=== PATIENT | female | born 1930 | race Caucasian/White ===

== ENCOUNTER 2017-09-22 19:02 | Emergency (ER) | payer OTHER ==
[~2017-09-22] VITALS: Ht 165.1 cm; Wt 78.5 kg
[~2017-09-22 19:02] MED LIST: AMIT10TA6 PO; ASPI-435 PO; DIGO0.1267 PO; LEVO75TA PO; LPR25 PO; MAGN400T5 PO; MULT-845 PO; PREG1CAP28 PO; SIMV20TA2 PO; TEMA30CA4 PO; WARF6TAB PO
[2017-09-22 19:12] VITALS: TEMP 36.3; Ht 165.1 cm; Wt 78.5 kg
[2017-09-22 19:38] VITALS: O2SAT 100
[2017-09-22 19:45] LABS: BASO ABS # 0.07 K/uL (0-0.2); EOS % 2.4 %; EOS ABS # 0.17 K/uL (0-0.5); HEMATOCRIT 38.9 % (37-47); IG# 0.02 K/uL (0.00-0.02); LYMPH % 30.6 %; LYMPH ABS # 2.19 K/uL (1.2-3.4); MEAN CELL VOLUME 90.9 fL (80-100); MEAN CORPUSCULAR HEMOGLOBIN 30.4 pg (25-34); MEAN CORPUSCULAR HGB CONC 33.4 g/dl (32-36); MEAN PLATELET VOLUME 10.3 fL (7.4-10.4); MONO % 13.3 %; MONO ABS # 0.95 K/uL (0.11-0.59); NEUT % 52.4 %; NEUT ABS # 3.75 K/uL (1.4-6.5); PLATELET COUNT 330 K/uL (130-400); RED CELL DISTRIBUTION WIDTH CV 13.8 % (11.5-14.5); RED CELL DISTRIBUTION WIDTH SD 45.4 fL (36.4-46.3); WHITE BLOOD COUNT 7.15 K/uL (4.8-10.8)
--- NOTE | 2017-09-22 19:55 | DIAGNOSTIC IMAGING REPORT ---
CHEST ONE VIEW PORTABLE CLINICAL HISTORY: Atypical chest pain COMPARISON STUDY: 09/02/2014 FINDINGS: The cardiac and mediastinal contours remain stable. There are postsurgical changes of a midline sternotomy and aortic valve replacement. There is a left subclavian dual-chamber central venous pacemaker present. There is no overt failure. There is no focal pulmonary consolidation. There are no pleural effusions.[ IMPRESSION: No active disease in the chest. Electronically signed by: Jason Le M.D. 09/22/2017 7:54 PM Dictated Date/Time: 09/22/2017 7:53 PM
--- NOTE | 2017-09-22 19:56 | DIAGNOSTIC IMAGING REPORT ---
PELVIS 1 OR 2 VIEW ROUTINE CLINICAL HISTORY: syncope pelvic pain. Trauma. COMPARISON STUDY: No previous studies for comparison. FINDINGS: No fractures are visualized. There is no SI joint diastases. There is no symphysis diastases. IMPRESSION: No fractures identified. Electronically signed by: Jason Le M.D. 09/22/2017 7:55 PM Dictated Date/Time: 09/22/2017 7:54 PM
[2017-09-22 19:58] LABS: INR 1.8 (0.9-1.1); PTT PATIENT 35.8 SECONDS (21.0-31.0)
[2017-09-22 20:04] LABS: ALBUMIN 3.7 gm/dl (3.4-5.0); ALT/SGPT 43 U/L (12-78); AST/SGOT 39 U/L (15-37); BLOOD UREA NITROGEN 9 mg/dl (7-18); CALCIUM 9.1 mg/dl (8.5-10.1); CARBON DIOXIDE 26 mmol/L (21-32); CREATININE 1.07 mg/dl (0.60-1.20); GLUCOSE 100 mg/dl (70-99); LIPASE 166 U/L (73-393); POTASSIUM 4.1 mmol/L (3.5-5.1); SODIUM 136 mmol/L (136-145)
--- NOTE | 2017-09-22 20:09 | EMERGENCY ROOM VISIT NOTE ---
History Report prepared by Jak: Debbie Kapadia Under the Supervision of: Dr. Joey Cody M.D. First contact with patient: 19:27 Chief Complaint: WEAKNESS Stated Complaint: RACING HEART,DIZZY,VERTIGO,PACEMAKER, AFIB Nursing Triage Summary: Patient reports she got up today and fell backwards into her bed then later fell back into her chair. Patient reports she feels as if it is vertigo but is concerned because of her other medical conditions. Hx A-fib. History of Present Illness The patient is a 87 year old female who presents to the Emergency Room with complaints of intermittent episodes of lightheadedness and weakness beginning this morning. The patient states that when she went to the bathroom in the ED she felt like she was going to "black out". The patient reports feeling lightheaded like the room is spinning. She denies any headache, chest pain, shortness of breath, or abdominal pain. She notes some blood in her stool which she states is normal for her when she has hard stools. The patient wears Depends diapers. She states that when she got up this morning there was blood in her diaper. She states her "vaginal area was raw" and that since the episode this morning there was no more blood in her diaper. She denies any recent blood transfusion. The patient has a history of vertigo and A-fib and is on Coumadin. Source of History: patient Onset: this morning Position: other (generalized) Quality: other (lightheadedness) Timing: intermittent Associated Symptoms: No headache, No chest pain, No SOB Review of Systems See HPI for pertinent positives and negatives. A total of ten systems were reviewed and were otherwise negative. Past Medical & Surgical Medical Problems: (1) H/O cardiac pacemaker (2) H/O: Valve repair Family History No pertinent family history Social History Smoking Status: Never Smoker Marital Status: Housing Status: lives with family Occupation Status: unemployed Current/Historical Medications Scheduled Amitriptyline Hcl (Elavil), 20 MG PO HS Aspirin (Aspirin 81), 81 MG PO Q2D Levothyroxine Sodium (Synthroid), 75 MCG PO DAILY Metoprolol Tartrate (Lopressor), 12.5 MG PO BID Multiple Vitamins W/ Minerals (Centrum Silver Adult 50+), 1 TAB PO DAILY Simvastatin (Zocor), 20 MG PO QPM Sulfa/Trimethoprim (Bactrim Ds 800MG/160MG), 1 TAB PO BID Temazepam (Restoril), 30 MG PO HS Warfarin Sod (Coumadin), 2 MG PO 5XWK Warfarin Sod (Coumadin), 1 MG PO 2XWK Allergies Coded Allergies: Flu Virus Vaccine (Unverified Allergy, Unknown, Unknown, 09/02/14) Physical Exam Vital Signs Date Time Temp Pulse Resp B/P (MAP) Pulse Ox O2 Delivery O2 Flow Rate FiO2 09/22/17 23:50 88 18 168/88 97 09/22/17 23:20 76 09/22/17 22:57 74 18 174/74 96 Room Air 09/22/17 21:34 79 18 184/66 97 Room Air 09/22/17 19:44 80 09/22/17 19:38 100 Room Air 09/22/17 19:12 36.3 77 18 189/85 95 Room Air Physical Exam Physical Exam GENERAL: She is oriented to person, place, and time. She appears well- developed and well-nourished. She does not appear distressed. ____ HENT: Exam performed. Head: Normocephalic and atraumatic. Right Ear: External ear normal. No mastoid tenderness. Left Ear: External ear normal. No mastoid tenderness. Mouth/Throat: The oropharynx is clear and moist. No trismus in the jaw. No dental abscesses or uvula swelling. No oropharyngeal exudate or tonsillar abscesses. ____ EYES: Conjunctivae and EOM are normal. Pupils are equal, round, and reactive to light. Right eye exhibits no discharge. Left eye exhibits no discharge. No scleral icterus. ____ NECK: Normal range of motion. Neck supple. No JVD present. No spinous process tenderness present. No carotid bruit present. No rigidity. No tracheal deviation and normal range of motion present. No Brudzinski's sign and no Kernig 's sign noted. ____ CV: Normal rate, irregular rhythm, normal heart sounds and intact distal pulses. There is no peripheral edema. Palpable radial pulses bue. ____ PULM/CHEST: Effort normal and breath sounds normal. No respiratory distress. No stridor. She has no wheezes. She has no rales. Chest Wall: She exhibits no tenderness. ____ ABD: The abdomen is soft. Bowel sounds are normal. She has no distension. No mass is present. There is no tenderness. There is no rebound, no guarding, no Henning's sign and no tenderness at McBurney's point. Rovsig negative MUSC/SKEL: Normal range of motion. There is no peripheral edema, tenderness or deformity. LYMPH: No cervical adenopathy. ____ NEURO: She is alert and oriented to person, place, and time. She has normal strength. No cranial nerve deficit or sensory deficit. Coordination and gait normal. GCS eye subscore is 4. GCS verbal subscore is 5. GCS motor subscore is 6. Cerebellar tests wnl. ____ SKIN: Skin is warm and dry. She is not diaphoretic. ____ PSYCH: She has a normal mood and affect. Her behavior is normal. Judgment and thought content normal. ____ Rectal: Hemoccult negative. No bright red blood per rectum : Diffuse erythema with white plaque around vulva region consistent with with appearance of sky, which the patient states has been present for a long time. Medical Decision & Procedures ER Provider Diagnostic Interpretation: Radiology results as stated below per my review and radiologist interpretation: CHEST ONE VIEW PORTABLE FINDINGS: The cardiac and mediastinal contours remain stable. There are postsurgical changes of a midline sternotomy and aortic valve replacement. There is a left subclavian dual-chamber central venous pacemaker present. There is no overt failure. There is no focal pulmonary consolidation. There are no pleural effusions.[ IMPRESSION: No active disease in the chest. Electronically signed by: Jason Le M.D. PELVIS 1 OR 2 VIEW ROUTINE FINDINGS: No fractures are visualized. There is no SI joint diastases. There is no symphysis diastases. IMPRESSION: No fractures identified. Electronically signed by: Jason Le M.D. CT ANGIOGRAM OF THE CHEST FINDINGS: Paratracheal lymph nodes are the upper limits of normal in size. There is no pathologic hilar or axillary lymphadenopathy. There was no evidence of thoracic aortic dilatation. There were no pulmonary artery filling defects to indicate acute pulmonary embolism. No pleural effusions are visualized. There is no focal pulmonary consolidation. There is mild dependent atelectasis. Evaluation is mildly limited due to respiratory motion artifact. There are scattered bilateral pulmonary nodules, the largest of which measures 4 mm. IMPRESSION: 1. No evidence of acute pulmonary embolism 2. Dependent atelectasis. 3. Scattered bilateral pulmonary nodules measuring up to 4 mm in diameter. 4. 2.5 mm upper pole right renal calculus Electronically signed by: Jason Le M.D. CT HEAD WITHOUT CONTRAST (CT) FINDINGS: No intra or extra-axial mass lesions are visualized. There is no CT evidence of acute cortical infarction. There is no evidence of midline shift. There is no acute hemorrhage. No calvarial fractures are visualized. There are minor white matter hypodensities likely on a small vessel basis. There is no evidence of pathologic ventricular dilatation. There is no evidence of acute sinusitis IMPRESSION: No acute intracranial findings Electronically signed by: Jason Le M.D. Laboratory Results 09/22/17 19:30 Red Blood Count 4.28, Mean Corpuscular Volume 90.9, Mean Corpuscular Hemoglobin 30.4, Mean Corpuscular Hemoglobin Concent 33.4, Mean Platelet Volume 10.3, Neutrophils (%) (Auto) 52.4, Lymphocytes (%) (Auto) 30.6, Monocytes (%) (Auto) 13.3, Eosinophils (%) (Auto) 2.4, Basophils (%) (Auto) 1.0, Neutrophils # (Auto ) 3.75, Lymphocytes # (Auto) 2.19, Monocytes # (Auto) 0.95, Eosinophils # (Auto ) 0.17, Basophils # (Auto) 0.07 09/22/17 19:30 Test 09/22/17 19:30 09/22/17 19:40 09/22/17 19:42 09/22/17 21:33 White Blood Count 7.15 K/uL (4.8-10.8) Red Blood Count 4.28 M/uL (4.2-5.4) Hemoglobin 13.0 g/dL (12.0-16.0) Hematocrit 38.9 % (37-47) Mean Corpuscular Volume 90.9 fL (80-100) Mean Corpuscular Hemoglobin 30.4 pg (25-34) Mean Corpuscular Hemoglobin Concent 33.4 g/dl (32-36) Platelet Count 330 K/uL (130-400) Mean Platelet Volume 10.3 fL (7.4-10.4) Neutrophils (%) (Auto) 52.4 % Lymphocytes (%) (Auto) 30.6 % Monocytes (%) (Auto) 13.3 % Eosinophils (%) (Auto) 2.4 % Basophils (%) (Auto) 1.0 % Neutrophils # (Auto) 3.75 K/uL (1.4-6.5) Lymphocytes # (Auto) 2.19 K/uL (1.2-3.4) Monocytes # (Auto) 0.95 K/uL (0.11-0.59) Eosinophils # (Auto) 0.17 K/uL (0-0.5) Basophils # (Auto) 0.07 K/uL (0-0.2) RDW Standard Deviation 45.4 fL (36.4-46.3) RDW Coefficient of Variation 13.8 % (11.5-14.5) Immature Granulocyte % (Auto) 0.3 % Immature Granulocyte # (Auto) 0.02 K/uL (0.00-0.02) Prothrombin Time 18.8 SECONDS (9.0-12.0) Prothromb Time International Ratio 1.8 (0.9-1.1) Activated Partial Thromboplast Time 35.8 SECONDS (21.0-31.0) Partial Thromboplastin Ratio 1.4 Urine Color YELLOW Urine Appearance CLEAR (CLEAR) Urine pH 5.5 (4.5-7.5) Urine Specific Donaldson 1.014 (1.000-1.030) Urine Protein NEG (NEG) Urine Glucose (UA) NEG (NEG) Urine Ketones NEG (NEG) Urine Occult Blood 1+ (NEG) Urine Nitrite POS (NEG) Urine Bilirubin NEG (NEG) Urine Urobilinogen NEG (NEG) Urine Leukocyte Esterase MODERATE (NEG) Urine WBC (Auto) 10-30 /hpf (0-5) Urine RBC (Auto) 0-4 /hpf (0-4) Urine Hyaline Casts (Auto) 1-5 /lpf (0-5) Urine Epithelial Cells (Auto) 0-5 /lpf (0-5) Urine Bacteria (Auto) 3+ (NEG) Anion Gap 8.0 mmol/L (3-11) Est Creatinine Clear Calc Drug Dose 39.1 ml/min Estimated GFR () 54.4 Estimated GFR (Non- 47.0 BUN/Creatinine Ratio 8.8 (10-20) Calcium Level 9.1 mg/dl (8.5-10.1) Magnesium Level 2.2 mg/dl (1.8-2.4) Total Bilirubin 0.3 mg/dl (0.2-1) Direct Bilirubin < 0.1 mg/dl (0-0.2) Aspartate Amino Transf (AST/SGOT) 39 U/L (15-37) Alanine Aminotransferase (ALT/SGPT) 43 U/L (12-78) Alkaline Phosphatase 81 U/L (45-117) Total Protein 7.6 gm/dl (6.4-8.2) Albumin 3.7 gm/dl (3.4-5.0) Lipase 166 U/L (73-393) Influenza Type A Antigen Neg for Influ A (NEG) Influenza Type B Antigen Neg for Influ B (NEG) Bedside Glucose 94 mg/dl (70-90) Lactic Acid Level 1.1 mmol/L (0.4-2.0) Test 09/22/17 22:42 Troponin I < 0.015 ng/ml (0-0.045) Laboratory results reviewed by me Medications Administered Medications (Trade) Dose Ordered Sig/Quentin Route Start Time Stop Time Status Last Admin Dose Admin Ceftriaxone Sodium (Rocephin Inj) 1 gm NOW STAT IV 09/22/17 20:39 09/22/17 20:41 DC 09/22/17 21:26 1 GM ECG Per My Interpretation Indication: weakness Rate (beats per minute): 77 Rhythm: other (atrial paced rhythm) Findings: PVC, other (KS QRS and QTC within normal limits. No ST elevation or ST depression) ED Course 1930: The patient was evaluated in room C10. A complete history and physical exam was performed. 2038: Ordered Rocephin Inj 1 gm IV. 2329: Ordered Trimethoprim/Sulfamethoxazole 1 homepack PO. 0: The patient reports she did not take her blood pressure medication today. 2345: I reevaluated the patient. Discussed results and discharge instructions: She verbalized understanding and agreement. The patient is ready for discharge. Medical Decision Vials stable, INR subtherapeutic, imaging within normal limits, labs within normal limits with the exception of urine which showed UTI. Patient was treated with IV antibiotics and fluids. Patient is asymptomatic after receiving antibiotics and fluids. Daughter at bedside. Patient was discharged with antibiotics. DISCHARGE - Plan of care discussed with family and questions answered. The family was given both verbal and printed discharge instructions. The family verbalized understanding and ability to comply. The family is to seek outpatient follow up as noted in the discharge instructions. The family verbalized understanding and ability to comply. The family is discharged in stable condition. The family was instructed to return for worsening symptoms. Medication Reconcilliation Current Medication List: was personally reviewed by me Blood Pressure Screening Patient's blood pressure: Elevated blood pressure Blood pressure disposition: Elevated BP felt to be situational Impression Primary Impression: UTI (urinary tract infection) Scribe Attestation The scribe's documentation has been prepared under my direction and personally reviewed by me in its entirety. I confirm that the note above accurately reflects all work, treatment, procedures, and medical decision making performed by me. The chart was completed utilizing [employer] Speech voice recognition software. Grammatical errors, random word insertions, pronoun errors, and incomplete sentences are an occasional consequence of this system due to software limitations, ambient noise, and hardware issues. Any formal questions or concerns about the content, text, or information contained within the body of this dictation should be directly addressed to the physician for clarification. Departure Information Dispostion Home / Self-Care Prescriptions Sulfa/Trimethoprim (Bactrim Ds 800MG/160MG) Tab 1 TAB PO BID for 3 Days, #6 TAB Prov: Joey Cody M.D. 09/22/17 Referrals Jaqueline Lara M.D. (PCP) Forms HOME CARE DOCUMENTATION FORM, IMPORTANT VISIT INFORMATION Patient Instructions [facility] Problem Qualifiers Primary Impression: UTI (urinary tract infection) Urinary tract infection type: acute cystitis Hematuria presence: without hematuria Qualified Codes: N30.00 - Acute cystitis without hematuria
[2017-09-22 20:10] LABS: ALKALINE PHOSPHATASE 81 U/L (45-117); TOTAL PROTEIN 7.6 gm/dl (6.4-8.2)
[2017-09-22 20:14] LABS: INFLUENZA B ANTIGEN Neg for Influ B (NEG)
[2017-09-22] MEDS ORDERED: CEFTRIAXONE SOD INJ 1 GM ADDVIAL IV STA (20:39)
--- NOTE | 2017-09-22 21:32 | DIAGNOSTIC IMAGING REPORT ---
CT HEAD WITHOUT CONTRAST (CT) CLINICAL HISTORY: Syncope. Patient on Coumadin. HEAD TRAUMA COMPARISON STUDY: No previous studies for comparison. TECHNIQUE: Axial CT of the brain is performed from the vertex to the skull base. IV contrast was not administered for this examination. A dose lowering technique was utilized adhering to the principles of ALARA. CT DOSE: 537.48 mGy.cm FINDINGS: No intra or extra-axial mass lesions are visualized. There is no CT evidence of acute cortical infarction. There is no evidence of midline shift. There is no acute hemorrhage. No calvarial fractures are visualized. There are minor white matter hypodensities likely on a small vessel basis. There is no evidence of pathologic ventricular dilatation. There is no evidence of acute sinusitis IMPRESSION: No acute intracranial findings Electronically signed by: Jason Le M.D. 09/22/2017 9:30 PM Dictated Date/Time: 09/22/2017 9:28 PM
[2017-09-22] MEDS ORDERED: CMD2 PO ×2 (21:42→21:45)
[2017-09-22] MEDS ORDERED: OPTIRAY 320 IV PRN (22:15)
--- NOTE | 2017-09-22 22:26 | DIAGNOSTIC IMAGING REPORT ---
CT ANGIOGRAM OF THE CHEST CLINICAL HISTORY: ATYPICAL CHEST PAIN. SYNCOPE. COMPARISON STUDY: Chest x-ray dated 02/19 2018 TECHNIQUE: Following the IV administration of mL of Optiray-320, CT angiogram of the thorax was performed from the thoracic inlet to the lung bases utilizing the pulmonary embolus protocol. Images are reviewed in the axial, sagittal, and coronal planes. IV contrast was administered without complication. MIP imaging was performed. A dose lowering technique was utilized adhering to the principles of ALARA. CT DOSE: 210.46 mGy.cm FINDINGS: Paratracheal lymph nodes are the upper limits of normal in size. There is no pathologic hilar or axillary lymphadenopathy. There was no evidence of thoracic aortic dilatation. There were no pulmonary artery filling defects to indicate acute pulmonary embolism. No pleural effusions are visualized. There is no focal pulmonary consolidation. There is mild dependent atelectasis. Evaluation is mildly limited due to respiratory motion artifact. There are scattered bilateral pulmonary nodules, the largest of which measures 4 mm. IMPRESSION: 1. No evidence of acute pulmonary embolism 2. Dependent atelectasis. 3. Scattered bilateral pulmonary nodules measuring up to 4 mm in diameter. 4. 2.5 mm upper pole right renal calculus Electronically signed by: Jason Le M.D. 09/22/2017 10:25 PM Dictated Date/Time: 09/22/2017 10:20 PM
[2017-09-22] MEDS ORDERED: SULF800T23 PO (23:28)
[2017-09-22] MEDS ORDERED: SEPTRA DS HOME PACK 1 EA VIAL PO ONE (23:30)
[2017-09-22 23:50] VITALS: BP 168/88; PULSE 88; O2SAT 97
== END 2017-09-22 23:51 | disposition home or self-care (01) ==
LOC: C.EDB 19:04 → C.EDC 23:51
DX: N30.00 Acute cystitis without hematuria (principal); Z79.82 Long term (current) use of aspirin; Z79.01 Long term (current) use of anticoagulants; Z51.81 Encounter for therapeutic drug level monitoring